=== PATIENT | male | born 1995 | race Caucasian/White ===

== ENCOUNTER 2019-08-03 13:49 | Emergency (ER) | payer SELFPAY ==
[~2019-08-03] VITALS: Ht 182.9 cm; Wt 77.1 kg
[2019-08-03 14:32] VITALS: BP 142/80
[2019-08-03] MEDS ORDERED: CEFTRIAXONE 1 G VIAL IM ONE (18:30)
[2019-08-03] MEDS ORDERED: SULFAMETH/TRIMETH 800/160 MG 1 UDTAB TABLET PO ONE (18:30)
[2019-08-03] MEDS ORDERED: SULFAMETH/TRIMETH 800/160 MG 1 UDTAB TABLET ONE (18:45)
[2019-08-03] MEDS ORDERED: CEFTRIAXONE 1 G VIAL ONE (18:45)
[2019-08-03] MEDS ORDERED: LIDOCAINE /MPF 1% VIAL 5 ML VIAL ONE (18:47)
== END 2019-08-03 19:06 | disposition home or self-care (01) ==
LOC: ER 13:52
DX: L01.00 Impetigo, unspecified (principal); R21 Rash and other nonspecific skin eruption
CPT/HCPCS: 96372; 99283; J0696; J3490

== ENCOUNTER 2022-06-19 00:35 | Emergency (ER) | payer SELFPAY ==
[~2022-06-19] VITALS: Ht 182.9 cm; Wt 68.0 kg
[2022-06-19 00:41] VITALS: BP 127/67
[2022-06-19] MEDS ORDERED: CEPH500T PO (00:49)
[2022-06-19] MEDS ORDERED: DEXAMETHASONE SOD PHOSPHATE 10 MG/ML VIAL ONE (00:53)
[2022-06-19] MEDS ORDERED: CEPHALEXIN MONOHYDRATE 500 MG CAPSULE PO ONE (00:54)
[2022-06-19] MEDS ORDERED: SILVER SULFADIAZINE CREAM 25 GM TUBE ONE (00:56)
[2022-06-19] MEDS ORDERED: SILVER SULFADIAZINE 50 GM JAR TP PRN (01:00)
--- NOTE | 2022-06-19 01:09 | NUR ---
Patient discharged to home in stable condition. Written and verbal after care instructions given. Patient verbalizes understanding of instruction.
[2022-06-19] MEDS: CEPHALEXIN MONOHYDRATE 500 MG CAPSULE PO ONE (01:10)
[2022-06-19] MEDS: DEXAMETHASONE SOD PHOSPHATE 4 MG/ML VIAL IM ONE (01:10)
== END 2022-06-19 01:11 | disposition home or self-care (01) ==
LOC: ER 00:39
DX: T65.891A Toxic effect of other specified substances, accidental (unintentional), initial encounter (principal); T26.92XA Corrosion of left eye and adnexa, part unspecified, initial encounter; T26.91XA Corrosion of right eye and adnexa, part unspecified, initial encounter; Y93.89 Activity, other specified; Y92.89 Other specified places as the place of occurrence of the external cause; Y99.8 Other external cause status
CPT/HCPCS: 99283; 16020; 96372; J1100